=== PATIENT | male | born 1955 | race Caucasian/White ===

== ENCOUNTER 2020-06-16 07:14 | Inpatient (IN) | payer OTHER ==
[~2020-06-16] VITALS: Ht 165.1 cm; Wt 53.0 kg
[2020-06-16 07:54] LABS: BASO # 0.1 10^3/uL (0.0-0.2); BASO % 0.4 % (0.0-1.0); EOS # 0.1 10^3/uL (0.0-0.5); EOS % 0.7 % (0.0-3.0); HEMATOCRIT 45.4 % (42.0-52.0); HEMOGLOBIN 15.5 g/dl (13.5-17.5); LYMPH # 2.1 10^3/uL (1.5-5.0); MEAN CORPUSCULAR HEMOGLOBIN 30.5 pg (27.0-33.0); MEAN CORPUSCULAR HGB CONC 34.1 g/dl (32.0-36.5); MEAN CORPUSCULAR VOLUME 89.4 fl (80.0-96.0); MONO # 1.3 10^3/uL (0.0-0.8); NEUTROPHILS # 10.3 10^3/uL (1.5-8.5); NEUTROPHILS % 74.6 % (36.0-66.0); PLATELET COUNT, AUTOMATED 359 10^3/uL (150-450); RED BLOOD COUNT 5.08 10^6/uL (4.30-6.10); WHITE BLOOD COUNT 13.8 10^3/uL (4.0-10.0)
--- NOTE | 2020-06-16 08:05 | REP ---
INDICATION: CVA COMPARISON: 06/13/2020 TECHNIQUE: Portable AP view of the chest FINDINGS: The mediastinum and cardiac silhouette are stable and within normal limits for portable technique. The lung bauer demonstrate stable chronic changes without acute consolidation, effusion, or pneumothorax. Skeletal structures are intact. IMPRESSION: No acute cardiopulmonary process appreciated. <Electronically signed by Piyush Butler > 06/16/20 0801
[2020-06-16 08:11] LABS: MB/CK RELATIVE INDEX 2.27 (< OR =4); TROPONIN I 0.03 NG/ML (< 0.10)
[2020-06-16] MEDS ORDERED: ISOVUE-370 76% 100ML VIAL As Ordered ONE (08:19)
[2020-06-16 08:23] LABS: RSV AMPLIFICATION NEGATIVE (NEGATIVE)
--- NOTE | 2020-06-16 08:30 | REPVR ---
PROCEDURE INFORMATION: Exam: CT Head Without Contrast Exam date and time: 06/16/2020 7:50 AM Age: 64 years old Clinical indication: Walking, difficulty and weakness, extremity; Right; Additional info: CVA - nursing interventions must not delay CT TECHNIQUE: Imaging protocol: Computed tomography of the head without contrast. Radiation optimization: All CT scans at this facility use at least one of these dose optimization techniques: automated exposure control; mA and/or kV adjustment per patient size (includes targeted exams where dose is matched to clinical indication); or iterative reconstruction. Other technique: STROKE PROTOCOL was implemented. COMPARISON: CT Head without contrast 06/13/2020 7:39 PM FINDINGS: Brain: Evolving subacute left frontotemporal lobe infarct. Mild generalized parenchymal atrophy and evidence of microvascular ischemic disease involving periventricular and subcortical white matter bilaterally. Cerebral ventricles: No ventriculomegaly. Bones/joints: Unremarkable. No acute fracture. Paranasal sinuses: Visualized sinuses are unremarkable. No fluid levels. Mastoid air cells: Visualized mastoid air cells are well aerated. Soft tissues: Unremarkable. IMPRESSION: Evolving subacute left frontotemporal lobe infarct. No acute infarct. ASSESSMENT: ASPECTS (Samantha Stroke Program Early CT Score) is 10. Electronically signed by: Nikolay Robertson On 06/16/2020 08:29:52 AM
--- NOTE | 2020-06-16 08:38 | REPVR ---
PROCEDURE INFORMATION: Exam: CT Angiography Head With Contrast, Arteriography Exam date and time: 06/16/2020 7:50 AM Age: 64 years old Clinical indication: Weakness; Additional info: CVA - nursing interventions must not delay CT TECHNIQUE: Imaging protocol: Computed tomography angiography of the head with contrast. Exam focused on the arteries. 3D rendering (Not supervised by radiologist): MIP and/or 3D reconstructed images were created by the technologist. Radiation optimization: All CT scans at this facility use at least one of these dose optimization techniques: automated exposure control; mA and/or kV adjustment per patient size (includes targeted exams where dose is matched to clinical indication); or iterative reconstruction. Contrast material: ISOVUE 370; Contrast volume: 100 ml; Contrast route: INTRAVENOUS (IV); COMPARISON: CT Head without contrast 06/13/2020 7:39 PM FINDINGS: ANTERIOR CIRCULATION: Right internal carotid artery: Unremarkable. Intracranial segment is patent with no significant stenosis. No aneurysm. Right middle cerebral artery: Unremarkable. No occlusion or significant stenosis. No aneurysm. Right anterior cerebral artery: Unremarkable. No occlusion or significant stenosis. No aneurysm. Anterior communicating artery: Patent anterior communicating artery supplies left A1 and M1 segments. Left internal carotid artery: Occluded left internal carotid artery. Left middle cerebral artery: Diminished caliber of left M2 and M3 segments. Left anterior cerebral artery: Unremarkable. No occlusion or significant stenosis. No aneurysm. POSTERIOR CIRCULATION: Right vertebral artery: Unremarkable. No occlusion or significant stenosis. No aneurysm. Left vertebral artery: Dominant left vertebral artery. Basilar artery: Unremarkable. No occlusion or significant stenosis. No aneurysm. Right posterior cerebral artery: Unremarkable. No occlusion or significant stenosis. No aneurysm. Left posterior cerebral artery: Unremarkable. No occlusion or significant stenosis. No aneurysm. Brain: No definite mass, mass effect, or midline shift. Cerebral ventricles: No ventriculomegaly. Bones/joints: Unremarkable. No acute fracture. Soft tissues: Unremarkable. IMPRESSION: Occluded left internal carotid artery. Patent anterior communicating artery supplies left A1 and M1 segments. Diminished caliber of left M2 and M3 segments. Electronically signed by: Nikolay Robertson On 06/16/2020 08:38:30 AM
--- NOTE | 2020-06-16 08:41 | REPVR ---
PROCEDURE INFORMATION: Exam: CT Angiography Neck With Contrast Exam date and time: 06/16/2020 7:50 AM Age: 64 years old Clinical indication: Weakness; Additional info: CVA - nursing interventions must not delay CT TECHNIQUE: Imaging protocol: Computed tomography angiography of the neck with contrast. 3D rendering (Not supervised by radiologist): MIP and/or 3D reconstructed images were created by the technologist. Radiation optimization: All CT scans at this facility use at least one of these dose optimization techniques: automated exposure control; mA and/or kV adjustment per patient size (includes targeted exams where dose is matched to clinical indication); or iterative reconstruction. Contrast material: ISOVUE 370; Contrast volume: 100 ml; Contrast route: INTRAVENOUS (IV); COMPARISON: No relevant prior studies available. FINDINGS: Right common carotid artery: No stenosis. No dissection or occlusion. Right internal carotid artery: No stenosis of the extracranial segment. No dissection or occlusion. Right external carotid artery: No occlusion or stenosis of the origin. Right vertebral artery: No stenosis. No dissection or occlusion. Left common carotid artery: No stenosis. No dissection or occlusion. Left internal carotid artery: Occluded left internal carotid artery. Left external carotid artery: Proximal stenosis. Left vertebral artery: Dominant left vertebral artery. Bones/joints: Multilevel degenerative disease and facet hypertrophy of the cervical spine. Marked stenosis of the spinal canal and neural foramina at several levels most pronounced at C5-C6. Soft tissues: Normal. No significant soft tissue swelling. Lungs: Centrilobular and paraseptal emphysema. Biapical scarring. IMPRESSION: Occluded left internal carotid artery. REFERENCES: NASCET CRITERIA. The degree of internal carotid artery stenosis is based on NASCET criteria. Normal is no stenosis. Mild is less than 50% stenosis. Moderate is 50-69% stenosis. Severe is 70% to 99% stenosis. Total occlusion is no detectable patent lumen. Electronically signed by: Nikolay Robertson On 06/16/2020 08:41:05 AM
[2020-06-16] MEDS ORDERED: BAYE325T16 PO (08:47)
[2020-06-16] MEDS ORDERED: ACETAMINOPHEN TAB 650MG DOSE (2X325MG) PO PRN (11:10)
[2020-06-16] MEDS ORDERED: MOM 30ML SUSPENSION UDC PO PRN (11:10)
[2020-06-16] MEDS ORDERED: MAALOX 30 ML SUSP *UDC PO PRN (11:10)
[2020-06-16 11:43] LABS: CHOLESTEROL RISK RATIO 4.02 (<5); THYROID STIMULATING HORMONE 2.88 uIU/ML (0.358-3.740)
[2020-06-16 12:31] LABS: HEMOGLOBIN A1c 5.6 %
--- NOTE | 2020-06-16 13:21 | ECGEPIP ---
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1955 Requested By: Cornell Dao Order Number: [id number] Reading MD: Cornell Dao Measurements Intervals Paola Rate: 66 P: 77 ND: 154 QRS: 10 QRSD: 104 T: -65 QT: 422 QTc: 442 Interpretive Statements Normal sinus rhythm Left ventricular hypertrophy with repolarization abnormality ( Sokolow-Echols , Avi product , Romhilt-Snow ) p pulmonale Nonspecific ST T wave changes Delayed R wave progression cw 06/13/[address] T wave changes significant artifact and baseline wandering on 06/13/20 - diffult to compare with Electronically Signed on 06-16-2020 13:20:45 EDT by Cornell Dao
[2020-06-16 13:31] VITALS: BP 165/76
[2020-06-16] MEDS: ATORVASTATIN 20 MG TAB PO SCH (14:02)
[2020-06-16] MEDS: ENOXAPARIN 40MG/0.4ML SYRINGE (J1650 PER 10MG) SC SCH (14:02)
[2020-06-16] MEDS: ASPIRIN 81 MG CHEW TABLET PO SCH (14:03)
[2020-06-16] MEDS: CLOPIDOGREL 75 MG TAB PO SCH (14:03)
[2020-06-16] MEDS: NS 1,000 ML IV SCH ×2 (14:15→20:30)
[2020-06-16 15:05] VITALS: BP 158/82
--- NOTE | 2020-06-16 15:10 | HPEPDOC ---
General Date of Admission June 16, 2020 at 09:36 Date of Service: June 16, 2020 Attending Physician: EFREN HOU MD Chief Complaint Presenting compliant: 64-year-old male admitted with a reason for visit of Cva Cerebral Vascular Accident. History of present illness: 64-year-old male patient who has never seen a doctor in 20 years [so no past medical history] presenting to the emergency department today morning with CVA. Patient came presented to ED on 06/13/2020 with complaining of drooling and slurred speech who was further evaluated in the ED with CT head and was diagnosed with TIA, but patient left AMA on that day. He was brought back by the EMS today after sustaining a fall at home today morning. Patient's is with him today during the encounter. Patient reports he only remembers waking up and having a fall and does not remember any details about the fall or following the fall. His was present in the room reports that today morning patient did wake up and he did fix the wooden stove outside later on had a fall witnessed by her daughter. I did contact the daughter to get more information regarding the fall and she reports that he was fixing wooden stove, lost his balance and fell towards his right side, he did attempt to get up but couldn't. She reports he did not have any head injury, no seizure-like activity, no loss of consciousness, no bowel or bladder incontinence. She reports he was confused during and after the episode and did have slurring speech since Thursday. Since Thursday patient was having difficulty in eating, drinking, slurred speech, sleeping a lot, shuffling gait. Past medical history: Patient never saw a doctor in 20 years. No known past medical history. Social history: Patient has a 50 year history of smoking of one and a half pack a day. Quit in October 2019. Family History: Father has a history of hypertension, heart disease Mother has a history of mini strokes, prediabetic, has a pacemaker. Maternal Grandmother: Has history of 3-4 strokes. Patient has 3 brothers with a history of hypertension and high cholesterol levels. REVIEW OF SYSTEMS: Constitutional: Denies having fever, chills, night sweats, weight loss, headaches. Eyes: Denies any blurry vision or double vision. ENT: Reports having difficulty in eating or drinking since Thursday Cardiovascular: Denies any chest pain or palpitations. Respiratory: Denies shortness of breath and cough. Gastrointestinal (GI): Denies any nausea or vomiting. Genitourinary: Denies dysuria, hematuria. Musculoskeletal: Denies any muscle aches and pains. Skin: Denies any rashes or ulcers. Hematology/Oncology: Denies any easy bleeding or bruising. All other review of systems is negative. PHYSICAL EXAMINATION: Vital Signs: On presentation Temperature: 98.2 Fahrenheit Pulse: 66/min RR: 22/min BP: 1 67 /80 mmHg Oxygen saturation %: 95% on room air General: Patient is awake, alert, oriented times three, laying in bed, does not appear to be in apparent distress. Eyes: Conjunctiva clear, pupils equal round and reactive to light and accommod ation. Patient couldn't follow the commands of following the fingers with his eyes. Couldn't assess extraocular movements. Fundus: not visualized. ENT: Hearing Bilateral normal. No nasal deviation, oropharynx clear with no lesions/erythema. On opening his mouth and sticking out that tongue, patient has mild deviation of the tongue towards the right. Neck: supple, no masses, trachea midline, no thyroid nodules appreciated on palpation, no tenderness or enlargement. Cardiovascular: S1, S2, normal rate and rhythm, systolic murmur 2/5, no rub appreciated; no JVD, noted displacement of PMI, no carotid or abdominal bruits. Pulses: Carotid and pedal pulses 3+ symmetric, no edema. Respiratory: Chest is clear to auscultation bilaterally, normal respiratory effort with no use of accessory muscles, diaphragm moves well with respiration. No rhonchi, wheezes or rubs. Abdomen: Soft, bowel sounds positive, no bruits. Nontender on palpation. Liver edge, spleen not felt, no masses. Extremities: Noted clubbing and upper extremities and lower extremities, noted onychomycosis and lower extremity nails. No edema, no cyanosis, no tenderness. Spine: No kyphosis, no paraspinal tenderness, no costovertebral tenderness. 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 Cranial nerves: ll: Pupils equal and reactive, no visual deficits, fundus not examined. lll, lV, Vl: Extraocular movements couldn't assess as patient was not following commands, no gaze deviation, no nystagmus noted. V: Normal sensations in V1, V2, V3 segment bilaterally. Vll: Noted right-sided loss of nasolabial Fold, flattening. Deviation of angle of mouth to left. Vlll: Normal hearing to speech. lX,X: Did not note any palatal elevation, could not visualize uvula deviation. Xl: 5/5 head turned to the left, 3/5 head turned to the right. Decreased strength on shrugging of right shoulder normal strength on left. Xll: Tongue deviation to the right. Motor: - 5 /5 strength muscle in the left shoulder abductors/adductors, elbow flexors/extension, hip flexor/extensor, knee flexor/extension, ankle dorsif lexion and plantar flexion. - 3/5 muscle strength in right shoulder abductor/adductors, elbow flexio n/extension. - 4/5 motor strength in right ankle dorsiflexion and plantar flexion. - Mild pronator drift noted in the right upper extremity. Reflexes: 2+ reflexes in upper and lower extremity, no clonus appreciated. Sensory: Normal to touch, pinprick in all limbs. Gait: Not assessed. Skin: No rashes, lesions, ulcerations, subcutaneous nodules or induration. Pertinent Diagnostic tests: Neck CTA done on 06/16/2020: Reported as: Occluded left internal carotid artery, proximal stenosis of the left external carotid, no stenosis or dissection or occlusion in the left common carotid artery. No stenosis dissection or occlusion of the right common carotid, right inguinal carotid, right external carotid, right leg tubular artery. Head CT done on 06/16/2020: Reported as: Evolving subacute left frontal temporal lobe infarct. No acute infarct. CTA head done on 06/16/2020: Reported as: Occluded left internal carotid artery. Patent anterior communicating artery supplies left A1 and M1 segments. Dimini shed caliber of the left M2 and M3 segments. Chest x-ray done on 06/16/2020: Reported as: No acute cardiopulmonary processes appreciated. LABS: WBC 13.8, hemoglobin 15.5, head CT 45.4, platelets 359. BMP: Sodium 137, K3.9, BUN 21, creatinine 0.6. PT 12.4, INR 1, APTT 28.3. Assessment: 64-year-old male with no known medical comorbidities presented to the ED on 06/13/2020 with a TIA, who left AMA. Today patient was brought in by EMS as patient had a fall on further evaluation in the ED imaging showed fronto temporal infarct. Dr. Galeana neurology was consulted from ED and he recommended contacting [facility] regarding this patient and they recommended starting him on aspirin & Plavix as he wouldn't be a candidate for TPA [given his duration of presentation] and managing the patient at [facility]. Patient is being admitted on the medical team for further management and evaluation. Plan: Cerebrovascular accident: - Patient had a TIA on 06/13/2020, as per the family he was never back to baseline following the episode [had slurring speech] - Today patient is presenting with an evolving ischemic/embolic infarct. - Will get an MRI brain to get more information on the infarct. - Neurology consult in place [Dr. Galeana has been contacted and informed about the case] we highly appreciated their input and recommendations. - If embolic the likely cause for the embolic is his left carotid artery given the complete occlusion on the CTA. - Will start patient on aspirin full dose 325 mg daily. - We will start patient on Plavix 75 mg by mouth daily. - Will start patient on Lipitor 80 mg daily. - Will get a lipid panel, hemoglobin A1c, TSH[orders in place] - Fall precautions, aspiration precautions. - Will get a swallow evaluated while prior to starting him on any diet. - As of now we will keep patient on bedrest. - Will start patient on 0.9% NaCl at the rate of 100 mL/h. - Will put patient on telemetry, will get an echocardiogram to rule out any cardiac issues like atrial fibrillation leading to this stroke. - To keep a close watch on patient as he may develop edema surrounding the infarct/ hemorrhage as it is an evolving infarct. DVT prophylaxis: - Lovenox 40 MG daily. Disposition: Pending clinical improvement. Home Medications Scheduled Aspirin (Aspirin) 325 Mg Tablet, 325 MG PO DAILY, (Reported) Allergies Coded Allergies: No Known Allergies (Unverified , 06/13/20) A-FIB/CHADSVASC A-FIB History Current/History of A-Fib/PAF?: No Current PO Anticoag Therapy: No Vital Signs Vital Signs Date Time Temp Pulse Resp B/P (MAP) Pulse Ox O2 Delivery O2 Flow Rate FiO2 5/1/21 10:30 68 18 196/83 (120) 97 Room Air 06/16/20 07:26 98.2 Laboratory Data Labs 24H Laboratory Tests 2 06/16/20 07:27: Bedside Glucose (Misc Panel) 133H 06/16/20 07:35: Immature Granulocyte % (Auto) 0.3, Neutrophils (%) (Auto) 74.6H, Lymphocytes (%) (Auto) 15.0L, Monocytes (%) (Auto) 9.0H, Eosinophils (%) (Auto) 0.7, Basophils (%) (Auto) 0.4, Neutrophils # (Auto) 10.3H, Lymphocytes # (Auto) 2.1, Monocytes # (Auto) 1.3H, Eosinophils # (Auto) 0.1, Basophils # (Auto) 0.1, Nucleated Red Blood Cells % (auto) 0.0, Activated Partial Thromboplast Time 28.3, POC Prothrombin Time (Misc) 12.4, POC INR (Misc) 1.0, Total Creatine Kinase 132, Creatine Kinase MB 3.0, Creatine Kinase MB Relative Index 2.27, Troponin I 0.03, Triglycerides Level 88, Total Cholesterol 201H, LDL Cholesterol 133H, Non-HDL Cholesterol (LDL + VLDL) 151, Total HDL Cholesterol 50, Cholesterol/HDL Ratio 4.020, Thyroid Stimulating Hormone (TSH) 2.880, Coronavirus (COVID-19)(PCR) NEGATIVE, Influenza Type A (RT-PCR) NEGATIVE, Influenza Type B (RT-PCR) NEGATIVE, Respiratory Syncytial Virus (PCR) NEGATIVE 06/16/20 07:37: POC Glucose (Misc Panel) 125H, POC Sodium (Misc Panel) 137, POC Potassium (Misc Panel) 3.9, POC Chloride (Misc Panel) 102, POC Total CO2 (Misc Panel) 26.0, POC Blood Urea Nitrogen (Misc Panel 21, POC Ionized Calcium (Misc Panel) 5.0, POC Creatinine (Misc Panel) 0.6, POC Hematocrit (Misc Panel) 46.0 CBC/BMP Laboratory Tests 06/16/20 07:35 Plan / VTE VTE Prophylaxis Ordered?: Yes GME ATTESTATION GME ATTESTATION My faculty preceptor for this patient encounter was physically present during the encounter and was fully available. All aspects of the patient interview, examination, medical decision making process, and medical care plan development were reviewed and approved by the faculty preceptor. The faculty preceptor is aware and concurs with the plan as stated in the body of this note and will attest to such by his/her cosignature. ATTENDING NOTE 64 yo chronic smoker, marrero who does not see medical providers at baseline and has generally been healthy until 06/11 when he developed acute dysarthria and R sided weakness and was brought to the ED with c/f TIA vs. CVA and had a head CT that was negative at the time and before he could complete a stroke evaluation and be admitted, he declined admission and signed out AMA because he has work to do at the [employer], who now returns reporting worsening evolving neurological symptoms with R sided weakness and a fall this morning and does not really remember what happened now with CT head showing a subacute left frontotemporal lobe infarct and CTA neck showing an occluded L internal carotid artery and neurology was consulted by the ED and [facility] neurology telemedicine consult made that recommended no tPA and no acute invasive interventions and recommended [facility] [place] for medical management with ASA, plavix and high intensity statin with a full stroke workup. We are therefore ordering an MRI brain, TTE with bubble study, lipid panel, a1c, telemetry, TFTs and will order PT/OT evaluation. Corrine Malik MD June 16, 2020 15:10 EFREN HOU MD June 16, 2020 15:37
--- NOTE | 2020-06-16 17:18 | CR ---
CONSULTATION DATE: 06/16/2020 REFERRING PHYSICIAN: Zina Holland M.D. REASON FOR CONSULTATION: Right-sided weakness. HISTORY OF PRESENT ILLNESS: Ghulam Nicole is a 64-year-old man who has never seen a doctor for more than 20 years. He presented to the emergency department on June 13, 2020. He had drooling and slurred speech. He was last seen that day around 4:00 p.m. by . He went to his barn around 6:00 and had drooling and slurred speech. She brought him to [facility] around 7:[address] scan of head was unremarkable. Patient left against medical advice. The day before yesterday he developed right arm weakness. Today he felt right leg weakness and fell. He denies any headaches, neck or back pain, diplopia, urinary incontinence, loss of consciousness or head injuries. CT scan of head today showed a large left frontal subacute ischemic stroke. CT angiography of head and neck showed left internal carotid artery occlusion. [facility] was consulted, who did not recommend any further intervention for left internal carotid artery occlusion. PAST MEDICAL HISTORY: Patient has not seen a physician in 20 years. SOCIAL HISTORY: Patient has 50 pack year smoking history for 1-1/2 packs per day. He quit in October 2019. FAMILY HISTORY: Father with history of hypertension and heart disease. Mother with history of stroke, diabetes and pacemaker replacement. Maternal grandmother had strokes. REVIEW OF SYSTEMS: All systems were reviewed and found to be noncontributory except as mentioned in history of present illness. DIAGNOSTIC STUDIES: CT head and CTA head and neck showed occluded left internal carotid artery. Diminished flow in M2 and M3 segments. WBC 13.8, hemoglobin 15.5. Creatinine 0.6 with normal coags. Sodium 137. PHYSICAL EXAMINATION: Temperature 98.2, pulse 66, respiratory rate 22, blood pressure 167/80. HEART: Regular rate and rhythm. LUNGS: Clear to auscultation. ABDOMEN: Soft, nontender, nondistended. EXTREMITIES: No pedal edema. MUSCULOSKELETAL: No abnormalities. SKIN: No rash. NEUROLOGICAL: No signs of meningeal irritation. The patient is awake, alert, oriented to place, person and time. Normal speech, comprehension and repetition. Extraocular muscles are intact. He has right-sided upper motor neuron type facial weakness affecting the right lower face. Tongue and uvula are midline. Right arm and leg strength is 4-/5. Right plantar is upgoing. Gait was not tested. ASSESSMENT: 1. Subacute left frontal ischemic stroke. 2. Left internal carotid artery occlusion. PLAN: 1. Echocardiogram and telemetry monitoring. 2. Fasting lipid profile. 3. Aspirin 81 mg by mouth daily and Plavix 75 mg by mouth daily. 4. Atorvastatin 80 mg by mouth daily and his dose can be lowered based on his fasting lipid profile. 5. Physical and occupational therapy and rehabilitation.
[2020-06-16 19:46] VITALS: BP 159/79
[2020-06-16] MEDS: DOCUSATE SODIUM 100MG CAPSULE PO SCH (20:30)
[2020-06-16 23:44] VITALS: BP 139/86
--- NOTE | 2020-06-17 00:19 | REPVR ---
PROCEDURE INFORMATION: Exam: MR Head Without Contrast Exam date and time: 06/16/2020 12:48 PM Age: 64 years old Clinical indication: Altered mental status/memory loss; Confusion or disorientation; Patient HX: AMS, weakness; Additional info: CVA TECHNIQUE: Imaging protocol: MR of the head without contrast. COMPARISON: CT Head without contrast 06/16/2020 7:49 AM FINDINGS: Examination is motion limited. There is partial loss of the left ICA flow void. Remaining major vascular flow voids at the skull base are preserved. No extra-axial fluid collection. No hydrocephalus. Non-specific white matter gliosis, probable chronic microvascular ischemia. There is left frontotemporal diffusion restriction measuring up to 7.6 cm. Associated T2 prolongation and edema. Local mass effect without midline shift. Minimal paranasal sinus disease. Minimal right mastoid effusion. IMPRESSION: 1. 7.6 cm early subacute ischemic infarct within the left MCA territory. 2. Partial loss of the left ICA flow void, better evaluated on recent CTA. Electronically signed by: Vinh Trammell On 06/17/2020 00:19:26 AM
[2020-06-17 03:45] VITALS: BP 144/72
[2020-06-17 06:52] LABS: BASO % 0.3 % (0.0-1.0); EOS # 0.1 10^3/uL (0.0-0.5); EOS % 1.5 % (0.0-3.0); HEMATOCRIT 41.9 % (42.0-52.0); HEMOGLOBIN 14.1 g/dl (13.5-17.5); LYMPH # 2.2 10^3/uL (1.5-5.0); LYMPH % 22.9 % (24.0-44.0); MEAN CORPUSCULAR HEMOGLOBIN 30.1 pg (27.0-33.0); MEAN CORPUSCULAR HGB CONC 33.7 g/dl (32.0-36.5); MEAN CORPUSCULAR VOLUME 89.3 fl (80.0-96.0); MONO # 0.9 10^3/uL (0.0-0.8); NEUTROPHILS # 6.1 10^3/uL (1.5-8.5); NEUTROPHILS % 65.1 % (36.0-66.0); PLATELET COUNT, AUTOMATED 333 10^3/uL (150-450); RED BLOOD COUNT 4.69 10^6/uL (4.30-6.10); WHITE BLOOD COUNT 9.4 10^3/uL (4.0-10.0)
[2020-06-17 07:15] LABS: BLOOD UREA NITROGEN 24 MG/DL (7-18); CALCIUM LEVEL 8.7 MG/DL (8.8-10.2); CARBON DIOXIDE LEVEL 26 MEQ/L (21-32); CHLORIDE LEVEL 107 MEQ/L (98-107); CREATININE FOR GFR 0.58 MG/DL (0.70-1.30); GLOMERULAR FILTRATION RATE > 60.0 (>49); GLUCOSE, FASTING 78 MG/DL (70-100); POTASSIUM SERUM 3.7 MEQ/L (3.5-5.1); SODIUM LEVEL 138 MEQ/L (136-145)
[2020-06-17 07:24] VITALS: BP 168/82
[2020-06-17] MEDS: ENOXAPARIN 40MG/0.4ML SYRINGE (J1650 PER 10MG) SC SCH (09:32)
[2020-06-17] MEDS: NS 1,000 ML IV SCH (09:33)
[2020-06-17] MEDS: DOCUSATE SODIUM 100MG CAPSULE PO SCH ×2 (09:33→21:49)
[2020-06-17] MEDS: ATORVASTATIN 20 MG TAB PO SCH (09:33)
[2020-06-17] MEDS: ASPIRIN 81 MG CHEW TABLET PO SCH (09:33)
[2020-06-17] MEDS: CLOPIDOGREL 75 MG TAB PO SCH (09:33)
[2020-06-17 11:42] VITALS: BP 167/77
--- NOTE | 2020-06-17 12:43 | IPNPDOC ---
Text Note Date of Service The patient was seen on 06/17/20. NOTE SUBJECTIVE: -No acute events OBJECTIVE: Vitals: see below General: Patient is awake, alert, oriented times three, in NAD Eyes: Conjunctiva clear, pupils equal round and reactive to light and accommodation, EOMI and following commands for exam this AM ENT: Oropharynx clear with no lesions/erythema, MMM Neck: supple, no masses, trachea midline, no tenderness or enlargement. Cardiovascular: S1, S2, normal rate and rhythm, systolic murmurs of different characteristics, generally 2/6 heard at RUSB and apex Respiratory: Chest is clear to auscultation bilaterally, normal respiratory effort with no use of accessory muscles, diaphragm moves well with respiration. No rhonchi, wheezes or rubs. Abdomen: Soft, bowel sounds positive, no bruits. Nontender on palpation. Extremities: Noted clubbing and upper extremities and lower extremities, extensive onychomycosis of lower extremity nails. No edema, no cyanosis, no tenderness. Neuro: AOx3, following commands, has slight dysarthria much improved from prior, very slight facial droop much improved from prior, 4/5 strength in RUE and RLE, 5/5 in LUE and LLE. LABS: Reviewed WBC 9.4 Hgb 14.1 platelets 333 Na 138 K 3.7 Cr 0.58 a1c 5.6 T chol 201 LDL 133 TSH 2.88 IMAGING: MRI brain, no contrast: Examination is motion limited. There is partial loss of the left ICA flow void. Remaining major vascular flow voids at the skull base are preserved. No extra-axial fluid collection. No hydrocephalus. Non-specific white matter gliosis, probable chronic microvascular ischemia. There is left frontotemporal diffusion restriction measuring up to 7.6 cm. Associated T2 prolongation and edema. Local mass effect without midline shift. Minimal paranasal sinus disease. Minimal right mastoid effusion. IMPRESSION: 1. 7.6 cm early subacute ischemic infarct within the left MCA territory. 2. Partial loss of the left ICA flow void, better evaluated on recent CTA. Neck CTA done on 06/16/2020: Reported as: Occluded left internal carotid artery, proximal stenosis of the left external carotid, no stenosis or dissection or occlusion in the left common carotid artery. No stenosis dissection or occlusion of the right common carotid, right inguinal carotid, right external carotid, right leg tubular artery. Head CT done on 06/16/2020: Reported as: Evolving subacute left frontal temporal lobe infarct. No acute infarct. CTA head done on 06/16/2020: Reported as: Occluded left internal carotid artery. Patent anterior communicating artery supplies left A1 and M1 segments. Diminished caliber of the left M2 and M3 segments. Chest x-ray done on 06/16/2020: Reported as: No acute cardiopulmonary processes appreciated. LABS: WBC 13.8, hemoglobin 15.5, head CT 45.4, platelets 359. BMP: Sodium 137, K3.9, BUN 21, creatinine 0.6. PT 12.4, INR 1, APTT 28.3. Assessment: 64-year-old M with no known medical history and no contact with the medical system who presented to the ED on 06/13/2020 and diagnosed with a TIA, who left AMA before completion of a stroke workup who returned on 06/16 with doug R sided deficits and dysarthria and diagnosed with a 7.6 cm early subacute ischemic infarct within the left MCA territory and left ICA occlusion now admitted to medicine for stroke workup and management. Plan: Cerebrovascular accident: - 7.6 cm early subacute ischemic infarct within the left MCA territory per imaging as noted above with L ICA occlusion. - Presented after a few days after onset of symptoms and infarct is subacute therefore not eligible for tPA - Neurology consulted Dr. Galeana - lipitor 80mg, ASA 81, plavix 75mg daily - TSH wnl - A1c wnl - HLD per lipid panel and lipitor was started - Fall precautions, aspiration precautions. - Will get a swallow evaluated for now ok for liquids nursing trial of apple sauce and pudding. - Activity as tolerated with PT/OT - DC IVF - telemetry - TTE with bubble - q4h neuro checks DVT prophylaxis: - Lovenox 40 MG daily. Disposition: PCU VS,Fishbone, I+O VS, Fishbone, I+O Laboratory Tests 06/17/20 05:38 Vital Signs Date Time Temp Pulse Resp B/P (MAP) Pulse Ox O2 Delivery O2 Flow Rate FiO2 06/17/20 11:42 98.0 67 18 167/77 (107) 97 Room Air I&O- Last 24 Hours up to 6 AM 06/17/20 06:00 Intake Total 1780 ml Output Total 300 ml Balance 1480 ml EFREN HOU MD June 17, 2020 12:43
[2020-06-17 15:38] VITALS: BP 156/76
[2020-06-17 21:50] VITALS: BP_SYST 165; BP_SYST 183; BP_DIAS 81; BP_DIAS 88
[2020-06-18 00:37] VITALS: BP 160/80
[2020-06-18 04:45] VITALS: BP 174/84
[2020-06-18 06:16] LABS: BASO # 0.1 10^3/uL (0.0-0.2); BASO % 0.6 % (0.0-1.0); EOS # 0.2 10^3/uL (0.0-0.5); EOS % 2.2 % (0.0-3.0); HEMATOCRIT 41.1 % (42.0-52.0); HEMOGLOBIN 14.2 g/dl (13.5-17.5); LYMPH # 1.9 10^3/uL (1.5-5.0); LYMPH % 21.5 % (24.0-44.0); MEAN CORPUSCULAR HEMOGLOBIN 30.5 pg (27.0-33.0); MEAN CORPUSCULAR HGB CONC 34.5 g/dl (32.0-36.5); MEAN CORPUSCULAR VOLUME 88.4 fl (80.0-96.0); MONO # 0.9 10^3/uL (0.0-0.8); MONO % 10.7 % (2.0-8.0); NEUTROPHILS # 5.7 10^3/uL (1.5-8.5); NEUTROPHILS % 64.5 % (36.0-66.0); PLATELET COUNT, AUTOMATED 320 10^3/uL (150-450); RED BLOOD COUNT 4.65 10^6/uL (4.30-6.10); WHITE BLOOD COUNT 8.8 10^3/uL (4.0-10.0)
[2020-06-18 06:40] LABS: BLOOD UREA NITROGEN 21 MG/DL (7-18); CALCIUM LEVEL 9.3 MG/DL (8.8-10.2); CARBON DIOXIDE LEVEL 27 MEQ/L (21-32); CHLORIDE LEVEL 103 MEQ/L (98-107); CREATININE FOR GFR 0.51 MG/DL (0.70-1.30); GLOMERULAR FILTRATION RATE > 60.0 (>49); GLUCOSE, FASTING 89 MG/DL (70-100); SODIUM LEVEL 137 MEQ/L (136-145)
[2020-06-18 08:00] VITALS: BP 154/77
[2020-06-18] MEDS: ENOXAPARIN 40MG/0.4ML SYRINGE (J1650 PER 10MG) SC SCH (08:15)
[2020-06-18] MEDS: ATORVASTATIN 20 MG TAB PO SCH (08:16)
[2020-06-18] MEDS: DOCUSATE SODIUM 100MG CAPSULE PO SCH (08:16)
[2020-06-18] MEDS: CLOPIDOGREL 75 MG TAB PO SCH (08:16)
[2020-06-18] MEDS ORDERED: ASPIRIN 81 MG CHEW TABLET PO SCH (09:00)
[2020-06-18] MEDS ORDERED: lisinopriL 5 MG TAB PO SCH (09:00)
--- NOTE | 2020-06-18 10:40 | DS.PDOC ---
Discharge Summary General Date of Admission June 16, 2020 at 09:36 Date of Discharge 06/18/2020 Attending Physician: EFREN HOU MD Discharge Summary PROCEDURES PERFORMED DURING STAY: None ADMITTING DIAGNOSES: CVA DISCHARGE DIAGNOSES: Subacute L MCA CVA Newly diagnosed HTN Newly diagnosed HLD L internal carotid atherosclerotic disease COMPLICATIONS/CHIEF COMPLAINT: Cva Cerebral Vascular Accident. 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 CVA and had a head CT that was negative at the time and before he could complete a stroke evaluation and be admitted, he declined admission and signed out AMA because he had work to do at the [employer], who now returned reporting worsening evolving neurological symptoms with R sided weakness and a fall this morning and did not really remember what happened. HOSPITAL COURSE: On this presentation, he was hypertensive and CT head showed a subacute left frontotemporal lobe infarct and CTA neck showing an occluded L internal carotid artery and neurology was consulted by the ED and [facility] neurology telemedicine consult made that recommended no tPA and no acute invasive interventions and recommended [facility] admission for medical management with ASA, plavix and high intensity statin with a full stroke workup. MRI brain without contrast revealed a 7.6 cm early subacute ischemic infarct within the left MCA territory and parti al loss of the left ICA flow void. Labs eventually revealed hyperlipidemia, no DM, and otherwise normal kidney and thyroid function and electrolytes and no evidence of infection. He has a pending TTE. He was noted to have some coughing with PO and had a swallow evaluation and deemed safe for a pureed diet at this time with thin liquids and PT/OT deemed him safe for home discharge. He is now being discharged home with a new PCP set up perhaps at the resident clinic and neurology clinic follow up. DISCHARGE MEDICATIONS: Please see below. ALLERGIES: Please see below. PHYSICAL EXAMINATION ON DISCHARGE: VITAL SIGNS: Please see below. General: Patient is awake, alert, oriented times three, in NAD Eyes: Conjunctiva clear, pupils equal round and reactive to light and accommodation, EOMI and following commands for exam this AM ENT: Oropharynx clear with no lesions/erythema, MMM Neck: supple, no masses, trachea midline, no tenderness or enlargement. Cardiovascular: S1, S2, normal rate and rhythm, systolic murmurs of different characteristics, generally 2/6 heard at RUSB and apex Respiratory: Chest is clear to auscultation bilaterally, normal respiratory effort with no use of accessory muscles, diaphragm moves well with respiration. No rhonchi, wheezes or rubs. Abdomen: Soft, bowel sounds positive, no bruits. Nontender on palpation. Extremities: Noted clubbing and upper extremities and lower extremities, extensive onychomycosis of lower extremity nails. No edema, no cyanosis, no tenderness. Neuro: AOx3, following commands, has slight dysarthria, very slight facial droop much improved from prior, 4.5/5 strength in RUE and RLE, 5/5 in LUE and LLE. LABORATORY DATA: Please see below. IMAGING: MRI brain, no contrast: Examination is motion limited. There is partial loss of the left ICA flow void. Remaining major vascular flow voids at the skull base are preserved. No extra-axial fluid collection. No hydrocephalus. Non-specific white matter gliosis, probable chronic microvascular ischemia. There is left frontotemporal diffusion restriction measuring up to 7.6 cm. Associated T2 prolongation and edema. Local mass effect without midline shift. Minimal paranasal sinus disease. Minimal right mastoid effusion. IMPRESSION: 1. 7.6 cm early subacute ischemic infarct within the left MCA territory. 2. Partial loss of the left ICA flow void, better evaluated on recent CTA. Neck CTA done on 06/16/2020: Reported as: Occluded left internal carotid artery, proximal stenosis of the left external carotid, no stenosis or dissection or occlusion in the left common carotid artery. No stenosis dissection or occlusion of the right common carotid, right inguinal carotid, right external carotid, right leg tubular artery. Head CT done on 06/16/2020: Reported as: Evolving subacute left frontal temporal lobe infarct. No acute infarct. CTA head done on 06/16/2020: Reported as: Occluded left internal carotid artery. Patent anterior communicating artery supplies left A1 and M1 segments. Diminished caliber of the left M2 and M3 segments. Chest x-ray done on 06/16/2020: Reported as: No acute cardiopulmonary processes appreciated. PROGNOSIS: Good ACTIVITY: As tolerated DIET: 2g sodium DISCHARGE PLAN: Home with ASA, plavix, lipitor, lisinopril DISPOSITION: Home DISCHARGE INSTRUCTIONS: Please take medications as prescribed and go to your neurology appointment and y our new PCP appointment ITEMS TO FOLLOWUP ON ON OUTPATIENT: HTN HLD Recent CVA DISCHARGE CONDITION: Stable TIME SPENT ON DISCHARGE: 46 minutes. Vital Signs/I&Os Vital Signs Date Time Temp Pulse Resp B/P (MAP) Pulse Ox O2 Delivery O2 Flow Rate FiO2 06/18/20 08:00 97.4 61 14 154/77 (102) 94 Room Air I&O- Last 24 Hours up to 6 AM 06/18/20 06:00 Intake Total 720 ml Output Total 800 ml Balance -80 ml Laboratory Data Labs 24H Laboratory Tests 2 06/17/20 12:35: Bedside Glucose (Misc Panel) 83 06/18/20 05:47: Immature Granulocyte % (Auto) 0.5, Neutrophils (%) (Auto) 64.5, Lymphocytes (%) (Auto) 21.5L, Monocytes (%) (Auto) 10.7H, Eosinophils (%) (Auto) 2.2, Basophils (%) (Auto) 0.6, Neutrophils # (Auto) 5.7, Lymphocytes # (Auto) 1.9, Monocytes # (Auto) 0.9H, Eosinophils # (Auto) 0.2, Basophils # (Auto) 0.1, Nucleated Red Blood Cells % (auto) 0.0, Anion Gap 7L, Glomerular Filtration Rate > 60.0, Calcium Level 9.3 CBC/BMP Laboratory Tests 06/18/20 05:47 FSBS Laboratory Tests Test 06/17/20 12:35 Range/Units Bedside Glucose (Misc Panel) 83 80-115 MG/DL Discharge Medications Scheduled Aspirin (Aspirin) 325 Mg Tablet, 325 MG PO DAILY, (Reported) Allergies Coded Allergies: No Known Allergies (Unverified , 06/13/20) EFREN HOU MD June 18, 2020 10:39
[2020-06-18] MEDS ORDERED: ASPI81CH8 PO (10:42)
[2020-06-18] MEDS ORDERED: CLOP75TA2 PO (10:42)
[2020-06-18] MEDS ORDERED: LISI-898 PO (10:42)
[2020-06-18] MEDS ORDERED: ATOR80TA59 PO (10:42)
[2020-06-18 11:56] VITALS: BP 150/74
[2020-06-18 12:00] VITALS: BP 150/74
--- NOTE | 2020-06-18 13:17 | ECHO ---
DATE OF PROCEDURE: 06/17/2020 Age: 64 Gender: Male Height: 66 inches Weight: 135 pounds Body Surface Area: 1.69 m2 PATIENT LOCATION: Inpatient PCU Room 3228. REFERRING PHYSICIAN: Mark Malik. INDICATION: CVA - ? cardiac source of embolic material. MEASUREMENTS: 2D Measurements: RV 2.8 cm LV 5.2 cm Septum 1.2 cm Posterior wall 1.2 cm Aortic Root 3.2 cm LA 4.0 cm LVEF 55% Doppler Measurements: AV - 2.12 m/s LVOT 0.89 m/s LVOT diameter 2.3 cm MV-E 46, A 78, EA ratio 0.6 Early mitral deceleration time 203 msec E prime medial 6, A prime medial 11, E prime lateral 6.4 Average E/E prime ratio 7.4/PCWP 11 mmHg PV 1.0 m/s Pulmonary artery acceleration time 130 msec RVSP 24 mmHg IVC 1.3 cm COMMENTS: Normal sinus rhythm without intraventricular conduction disturbance. A somewhat technically challenging study, but diagnostically useful information was still obtained. M-mode and 2-dimensional echocardiography was performed with pulse, continuous wave, color flow, and tissue Doppler studies. Borderline concentric left ventricular hypertrophy with normal wall motion. Mildly dilated left atrium with grade 1 LV diastolic dysfunction but currently normal estimated mean left atrial pressure. Normal right heart chamber sizes and motion and estimated pulmonary arterial pressure. IVC size was somewhat reduced with complete collapse suggestive of a somewhat soft central venous pressure. Normal aortic root size but could not visualize the ascending aorta or aortic arch to rule out coarctation of the aorta. Difficult to visualize the number of aortic valve cusps but suspected bicuspid valve with echogenic raphe where ordinarily the commissure between the right and left coronary cusps would be visualized. Adequate cusp motion of the noncoronary cusps. The mean transvalvular systolic gradient was only 9 mmHg with dimensionless index of 0.46 in keeping with no more than a marginal degree of aortic stenosis with this suspected bicuspid aortic valve. No insufficiency. Mild mitral annular thickening but normal leaflet excursion and no posterior systolic buckling with only very mild insufficiency. Normal appearing tricuspid valve with very mild insufficiency (physiologic). No separate intracardiac mass or pericardial effusion could be visualized. If a cardiac source of embolic material is seriously suspect would recommend a transesophageal echocardiogram to further define aortic valvular structure and function. MTDD
[2020-06-20 17:09] LABS: Lyme Disease IgG Ab 18 kDa Ban Absent (.); Lyme Disease IgG Ab 23 kDa Ban Absent (.); Lyme Disease IgG Ab 28 kDa Ban Absent (.); Lyme Disease IgG Ab 30 kDa Ban Absent (.); Lyme Disease IgG Ab 39 kDa Ban Present (.); Lyme Disease IgG Ab 41 kDa Ban Present (.); Lyme Disease IgG Ab 45 kDa Ban Present (.); Lyme Disease IgG Ab 58 kDa Ban Absent (.); Lyme Disease IgG Ab 66 kDa Ban Absent (.); Lyme Disease IgG Ab 93 kDa Ban Absent (.); Lyme Disease IgG West Blot Int Negative (.); Lyme Disease IgG/IgM Antibodie <0.91 ISR (0.00-0.90); Lyme Disease IgM Ab 23 kDa Ban Absent (.); Lyme Disease IgM Ab 39 kDa Ban Absent (.); Lyme Disease IgM Ab 41 kDa Ban Present (.); Lyme Disease IgM Ab Quantitati 1.23 index (0.00-0.79); Lyme Disease IgM West Blot Int Negative (.)
== END 2020-06-18 14:51 | disposition home health service (06) | DRG 45 ==
LOC: M ED 07:14 → EDBD 07:14 → M ED INP 09:36 → M PCU 13:18
PROVIDERS: ADMIT Internal Medicine; ATTEND Internal Medicine
DX: I63.132 Cerebral infarction due to embolism of left carotid artery (principal); I69.351 Hemiplegia and hemiparesis following cerebral infarction affecting right dominant side; I10 Essential (primary) hypertension; Z79.82 Long term (current) use of aspirin; F17.200 Nicotine dependence, unspecified, uncomplicated

== ENCOUNTER → 2020-06-22 | Outpatient (REF) | payer OTHER ==
[~2020-06-22] MED LIST: ASPI81CH8 PO; ATOR80TA59 PO; BAYE325T16 PO; CLOP75TA2 PO; LISI-898 PO
[2020-06-22 16:10] LABS: BLOOD UREA NITROGEN 34 MG/DL (7-18); CARBON DIOXIDE LEVEL 30 MEQ/L (21-32); CHLORIDE LEVEL 102 MEQ/L (98-107); CREATININE FOR GFR 0.68 MG/DL (0.70-1.30); GLOMERULAR FILTRATION RATE > 60.0 (>49); GLUCOSE, FASTING 96 MG/DL (70-100); POTASSIUM SERUM 4.8 MEQ/L (3.5-5.1); SODIUM LEVEL 138 MEQ/L (136-145)
== END ==
LOC: M SFHCPLAZ 10:58
PROVIDERS: ATTEND Family Medicine
DX: I10 Essential (primary) hypertension (principal)

== ENCOUNTER → 2020-07-11 | Outpatient (CLI) | payer OTHER ==
--- NOTE | 2020-07-11 08:37 | REP ---
INDICATION: ENCOUNTER FOR SCREENING FOR LUNG CANCER COMPARISON: None. TECHNIQUE: Axial noncontrast images from the thoracic inlet to the upper abdomen using low-dose lung screening technique (LDCT). FINDINGS: Moderate emphysematous changes are appreciated along with mild presumed chronic somewhat nodular biapical scarring. No obvious acute consolidation, suspicious nodule or mass. Few small punctate 1-2 mm densities are identified. No effusion. No pneumothorax. Tracheobronchial tree is patent. IMPRESSION: Lung-RADS 1 S. Findings suggesting COPD/emphysematous disease with minimal scattered primarily biapical scarring. No definite suspicious nodule or mass lesion. Management recommendations include annual low-dose CT surveillance. <Electronically signed by Piyush Butler > 07/11/20 [id number]
== END ==
LOC: M RAD 08:02
PROVIDERS: ATTEND Family Medicine
DX: Z12.2 Encounter for screening for malignant neoplasm of respiratory organs (principal); J43.9 Emphysema, unspecified; R91.8 Other nonspecific abnormal finding of lung field; Z87.891 Personal history of nicotine dependence

== ENCOUNTER → 2020-09-11 | Outpatient (REF) | payer OTHER ==
[2020-09-11 13:19] LABS: BLOOD UREA NITROGEN 12 MG/DL (7-18); CARBON DIOXIDE LEVEL 32 MEQ/L (21-32); CHLORIDE LEVEL 104 MEQ/L (98-107); CHOLESTEROL LEVEL 121 MG/DL (<200); CHOLESTEROL RISK RATIO 2.813 (<5); CREATININE FOR GFR 0.67 MG/DL (0.70-1.30); GLOMERULAR FILTRATION RATE > 60.0 (>49); GLUCOSE, FASTING 92 MG/DL (70-100); HDL CHOLESTEROL 43 MG/DL (>40); LDL CHOLESTEROL 59 MG/DL (<100); NON-HDL-C 78 MG/DL; PHOSPHORUS LEVEL 3.1 MG/DL (2.5-4.9); POTASSIUM SERUM 4.2 MEQ/L (3.5-5.1); SODIUM LEVEL 140 MEQ/L (136-145); TRIGLYCERIDES LEVEL 93 MG/DL (<150)
== END ==
LOC: M LABDRWAD 12:26
PROVIDERS: ATTEND Internal Medicine Cardiovascular Disease
DX: E78.5 Hyperlipidemia, unspecified (principal); I10 Essential (primary) hypertension

== ENCOUNTER → 2020-09-17 | Outpatient (REF) | payer OTHER ==
[~2020-09-17] MED LIST changes: -LISI-898 PO; +LISI5TAB11 PO
[2020-09-17 14:28] LABS: CREATININE, URINE 88.5 MG/DL; MALB URINE SIEMENS 5.9 MG/L; MAU/CREAT RATIO 6.6 MCG/MG (0.0-30.0)
== END ==
LOC: M LAB REF 13:26
PROVIDERS: ATTEND Internal Medicine Cardiovascular Disease
DX: E78.5 Hyperlipidemia, unspecified (principal); I10 Essential (primary) hypertension

== ENCOUNTER → 2021-07-05 | Outpatient (CLI) | payer MEDICARE, OTHER ==
[2021-07-05 10:23] LABS: HEMATOCRIT 42.9 % (42.0-52.0); HEMOGLOBIN 14.6 g/dl (13.5-17.5); MEAN CORPUSCULAR HEMOGLOBIN 30.2 pg (27.0-33.0); MEAN CORPUSCULAR VOLUME 88.8 fl (80.0-96.0); PLATELET COUNT, AUTOMATED 297 10^3/uL (150-450); RED BLOOD COUNT 4.83 10^6/uL (4.30-6.10); WHITE BLOOD COUNT 9.6 10^3/uL (4.0-10.0)
[2021-07-05 10:55] LABS: ALBUMIN 3.9 GM/DL (3.2-5.2); ALT/SGPT 38 U/L (12-78); BILIRUBIN,TOTAL 0.7 MG/DL (0.2-1.0); BLOOD UREA NITROGEN 16 MG/DL (7-18); CALCIUM LEVEL 9.3 MG/DL (8.8-10.2); CARBON DIOXIDE LEVEL 31 MEQ/L (21-32); CHLORIDE LEVEL 104 MEQ/L (98-107); CREATININE FOR GFR 0.74 MG/DL (0.70-1.30); GLOMERULAR FILTRATION RATE > 60.0 (>49); GLUCOSE, FASTING 92 MG/DL (70-100); POTASSIUM SERUM 4.5 MEQ/L (3.5-5.1); SODIUM LEVEL 140 MEQ/L (136-145); TOTAL PROTEIN 7.2 GM/DL (6.4-8.2)
== END ==
LOC: M PLALAB 09:06
PROVIDERS: ATTEND Physician Assistant
DX: I10 Essential (primary) hypertension (principal)

== ENCOUNTER → 2021-11-12 | Outpatient (CLI) | payer MEDICARE, OTHER | LOC: M RAD 08:37 | PROVIDERS: ATTEND Family Medicine | DX: Z13.6 Encounter for screening for cardiovascular disorders (principal) ==

== ENCOUNTER → 2021-12-09 | Outpatient (CLI) | payer MEDICARE, OTHER | LOC: M RAD 09:12 | PROVIDERS: ATTEND Family Medicine | DX: Z12.2 Encounter for screening for malignant neoplasm of respiratory organs (principal); Z87.891 Personal history of nicotine dependence; J43.9 Emphysema, unspecified; J98.4 Other disorders of lung; J84.10 Pulmonary fibrosis, unspecified ==

== ENCOUNTER → 2021-12-25 | Outpatient (CLI) | payer MEDICARE, OTHER ==
[2021-12-25 15:52] LABS: BLOOD UREA NITROGEN 12 MG/DL (7-18); CALCIUM LEVEL 9.6 MG/DL (8.8-10.2); CARBON DIOXIDE LEVEL 32 MEQ/L (21-32); CHLORIDE LEVEL 101 MEQ/L (98-107); CREATININE FOR GFR 0.76 MG/DL (0.70-1.30); GLOMERULAR FILTRATION RATE > 60.0 (>49); GLUCOSE, FASTING 93 MG/DL (70-100); POTASSIUM SERUM 4.3 MEQ/L (3.5-5.1); SODIUM LEVEL 139 MEQ/L (136-145); URIC ACID 4.5 MG/DL (3.5-7.2)
== END ==
LOC: M PLALAB 10:52
PROVIDERS: ATTEND Student in an Organized Health Care Education/Training Program
DX: I10 Essential (primary) hypertension (principal)

== ENCOUNTER → 2021-12-25 | Outpatient (CLI) | payer MEDICARE, OTHER ==
[2021-12-25 14:03] LABS: BASO % 0.5 % (0.0-1.0); EOS # 0.2 10^3/uL (0.0-0.5); EOS % 2.6 % (0.0-3.0); HEMATOCRIT 40.2 % (42.0-52.0); HEMOGLOBIN 13.3 g/dl (13.5-17.5); LYMPH # 2.3 10^3/uL (1.5-5.0); LYMPH % 26.7 % (24.0-44.0); MEAN CORPUSCULAR HEMOGLOBIN 30.2 pg (27.0-33.0); MEAN CORPUSCULAR HGB CONC 33.1 g/dl (32.0-36.5); MEAN CORPUSCULAR VOLUME 91.4 fl (80.0-96.0); MONO % 11.1 % (2.0-8.0); NEUTROPHILS # 5.2 10^3/uL (1.5-8.5); NEUTROPHILS % 58.9 % (36.0-66.0); PLATELET COUNT, AUTOMATED 316 10^3/uL (150-450); WHITE BLOOD COUNT 8.8 10^3/uL (4.0-10.0)
[2021-12-25 15:51] LABS: ALBUMIN 3.8 GM/DL (3.2-5.2); ALKALINE PHOSPHATASE 104 U/L (45-117); ALT/SGPT 46 U/L (12-78); AST/SGOT 27 U/L (7-37); BILIRUBIN,TOTAL 0.5 MG/DL (0.2-1.0); BLOOD UREA NITROGEN 12 MG/DL (7-18); CALCIUM LEVEL 9.3 MG/DL (8.8-10.2); CARBON DIOXIDE LEVEL 33 MEQ/L (21-32); CHLORIDE LEVEL 102 MEQ/L (98-107); CREATININE FOR GFR 0.77 MG/DL (0.70-1.30); GLOMERULAR FILTRATION RATE > 60.0 (>49); GLUCOSE, FASTING 92 MG/DL (70-100); POTASSIUM SERUM 4.2 MEQ/L (3.5-5.1); SODIUM LEVEL 140 MEQ/L (136-145); TOTAL PROTEIN 7.5 GM/DL (6.4-8.2)
== END ==
LOC: M PLALAB 10:54
PROVIDERS: ATTEND Psychiatry & Neurology Neurology
DX: R56.9 Unspecified convulsions (principal)

== ENCOUNTER → 2022-03-12 | Outpatient (CLI) | payer MEDICARE, OTHER ==
[2022-03-12 13:41] LABS: BASO # 0.1 10^3/uL (0.0-0.2); BASO % 0.6 % (0.0-1.0); EOS # 0.5 10^3/uL (0.0-0.5); EOS % 4.9 % (0.0-3.0); HEMATOCRIT 40.5 % (42.0-52.0); HEMOGLOBIN 13.8 g/dl (13.5-17.5); LYMPH # 2.8 10^3/uL (1.5-5.0); LYMPH % 30.2 % (24.0-44.0); MEAN CORPUSCULAR HEMOGLOBIN 30.8 pg (27.0-33.0); MEAN CORPUSCULAR HGB CONC 34.1 g/dl (32.0-36.5); MEAN CORPUSCULAR VOLUME 90.4 fl (80.0-96.0); MONO % 10.4 % (2.0-8.0); NEUTROPHILS % 53.7 % (36.0-66.0); PLATELET COUNT, AUTOMATED 329 10^3/uL (150-450); RED BLOOD COUNT 4.48 10^6/uL (4.30-6.10); WHITE BLOOD COUNT 9.2 10^3/uL (4.0-10.0)
== END ==
LOC: M PLALAB 11:38
PROVIDERS: ATTEND Student in an Organized Health Care Education/Training Program
DX: D64.9 Anemia, unspecified (principal)

== ENCOUNTER → 2022-05-07 | Outpatient (REF) | payer MEDICARE | LOC: M SFHCPLAZ 08:44 | PROVIDERS: ATTEND Family Medicine | DX: E78.00 Pure hypercholesterolemia, unspecified (principal); I10 Essential (primary) hypertension ==

== ENCOUNTER → 2022-05-22 | Outpatient (CLI) | payer MEDICARE ==
[2022-05-22 11:06] LABS: BLOOD UREA NITROGEN 25 MG/DL (9-23); CALCIUM LEVEL 9.3 MG/DL (8.3-10.6); CARBON DIOXIDE LEVEL 32 MMOL/L (20-31); CHLORIDE LEVEL 102 MMOL/L (98-107); CHOLESTEROL LEVEL 126 MG/DL (<200); CREATININE FOR GFR 0.82 MG/DL (0.70-1.30); GLOMERULAR FILTRATION RATE > 60.0 (>49); GLUCOSE, FASTING 98 MG/DL (74-106); LDL CHOLESTEROL 72.2 MG/DL (<100); POTASSIUM SERUM 4.3 MMOL/L (3.5-5.1); SODIUM LEVEL 139 MMOL/L (136-145); TRIGLYCERIDES LEVEL 89 MG/DL (<150)
[2022-05-22 12:06] LABS: HEMOGLOBIN A1c 5.9 % (4.0-6.0)
== END ==
LOC: M PLALAB 08:17
PROVIDERS: ATTEND Student in an Organized Health Care Education/Training Program
DX: I10 Essential (primary) hypertension (principal); E78.00 Pure hypercholesterolemia, unspecified

== ENCOUNTER → 2023-03-10 | Outpatient (CLI) | payer MEDICARE | LOC: M RAD 07:05 | PROVIDERS: ATTEND Student in an Organized Health Care Education/Training Program | DX: Z12.2 Encounter for screening for malignant neoplasm of respiratory organs (principal); Z87.891 Personal history of nicotine dependence; R91.1 Solitary pulmonary nodule; J84.10 Pulmonary fibrosis, unspecified ==

== ENCOUNTER → 2023-04-22 | Outpatient (CLI) | payer MEDICARE ==
[2023-04-22 10:31] LABS: BASO # 0.1 10^3/uL (0.0-0.2); BASO % 0.6 % (0.0-1.0); EOS # 0.4 10^3/uL (0.0-0.5); EOS % 4.4 % (0.0-3.0); HEMATOCRIT 40.6 % (42.0-52.0); HEMOGLOBIN 13.8 g/dl (13.5-17.5); LYMPH # 2.4 10^3/uL (1.5-5.0); LYMPH % 29.6 % (24.0-44.0); MEAN CORPUSCULAR HEMOGLOBIN 30.6 pg (27.0-33.0); MONO # 0.8 10^3/uL (0.0-0.8); NEUTROPHILS # 4.4 10^3/uL (1.5-8.5); PLATELET COUNT, AUTOMATED 333 10^3/uL (150-450); RED BLOOD COUNT 4.51 10^6/uL (4.30-6.10)
[2023-04-22 10:57] LABS: ALBUMIN 3.8 G/DL (3.2-5.2); ALKALINE PHOSPHATASE 69 U/L (46-116); ALT/SGPT 29 U/L (7.0-40); AST/SGOT 24 U/L (<34); BILIRUBIN,TOTAL 0.8 MG/DL (0.3-1.2); BLOOD UREA NITROGEN 25 MG/DL (9-23); CALCIUM LEVEL 8.8 MG/DL (8.3-10.6); CARBON DIOXIDE LEVEL 31 MMOL/L (20-31); CHLORIDE LEVEL 104 MMOL/L (98-107); CREATININE FOR GFR 0.83 MG/DL (0.70-1.30); GLOMERULAR FILTRATION RATE > 60.0 (>49); GLUCOSE, FASTING 101 MG/DL (74-106); POTASSIUM SERUM 4.7 MMOL/L (3.5-5.1); SODIUM LEVEL 140 MMOL/L (136-145); TOTAL PROTEIN 6.8 G/DL (5.7-8.2)
== END ==
LOC: M PLALAB 08:22
PROVIDERS: ATTEND Psychiatry & Neurology Neurology
DX: R56.9 Unspecified convulsions (principal)

== ENCOUNTER → 2023-05-14 | Outpatient (CLI) | payer MEDICARE ==
[2023-05-14 19:04] LABS: HEMATOCRIT 42.9 % (42.0-52.0); HEMOGLOBIN 14.8 g/dl (13.5-17.5); MEAN CORPUSCULAR HGB CONC 34.5 g/dl (32.0-36.5); MEAN CORPUSCULAR VOLUME 89.9 fl (80.0-96.0); PLATELET COUNT, AUTOMATED 320 10^3/uL (150-450); RED BLOOD COUNT 4.77 10^6/uL (4.30-6.10); WHITE BLOOD COUNT 10.4 10^3/uL (4.0-10.0)
[2023-05-14 19:33] LABS: CHOLESTEROL RISK RATIO 4.02 (<5); HDL CHOLESTEROL 33.5 MG/DL (>40); LDL CHOLESTEROL 48.9 MG/DL (<100); NON-HDL-C 101.5 MG/DL
== END ==
LOC: M PLALAB 16:00
PROVIDERS: ATTEND Student in an Organized Health Care Education/Training Program
DX: G40.309 Generalized idiopathic epilepsy and epileptic syndromes, not intractable, without status epilepticus (principal); E78.00 Pure hypercholesterolemia, unspecified

== ENCOUNTER → 2023-06-26 | Outpatient (CLI) | payer MEDICARE ==
[2023-06-26 10:38] LABS: BASO # 0.1 10^3/uL (0.0-0.2); BASO % 0.6 % (0.0-1.0); EOS # 0.4 10^3/uL (0.0-0.5); HEMATOCRIT 43.4 % (42.0-52.0); HEMOGLOBIN 14.9 g/dl (13.5-17.5); LYMPH # 2.5 10^3/uL (1.5-5.0); LYMPH % 27.5 % (24.0-44.0); MEAN CORPUSCULAR HEMOGLOBIN 31.2 pg (27.0-33.0); MEAN CORPUSCULAR HGB CONC 34.3 g/dl (32.0-36.5); MEAN CORPUSCULAR VOLUME 90.8 fl (80.0-96.0); MONO # 0.9 10^3/uL (0.0-0.8); NEUTROPHILS # 5.1 10^3/uL (1.5-8.5); NEUTROPHILS % 57.7 % (36.0-66.0); PLATELET COUNT, AUTOMATED 352 10^3/uL (150-450); RED BLOOD COUNT 4.78 10^6/uL (4.30-6.10); WHITE BLOOD COUNT 8.9 10^3/uL (4.0-10.0)
[2023-06-26 10:41] LABS: CHOLESTEROL RISK RATIO 3.65 (<5); HDL CHOLESTEROL 34.5 MG/DL (>40); LDL CHOLESTEROL 75.7 MG/DL (<100); NON-HDL-C 91.5 MG/DL
[2023-06-26 10:48] LABS: HEMOGLOBIN A1c 5.7 % (4.0-6.0)
== END ==
LOC: M PLALAB 07:32
PROVIDERS: ATTEND Ophthalmology
DX: H35.61 Retinal hemorrhage, right eye (principal); H25.13 Age-related nuclear cataract, bilateral; H16.223 Keratoconjunctivitis sicca, not specified as Sjogren's, bilateral; Z79.899 Other long term (current) drug therapy

== ENCOUNTER → 2024-05-05 | Outpatient (CLI) | payer MEDICARE ==
[2024-05-05 10:44] LABS: CHOLESTEROL RISK RATIO 2.97 (<5); HDL CHOLESTEROL 38.7 MG/DL (>40); LDL CHOLESTEROL 61.7 MG/DL (<100); NON-HDL-C 76.3 MG/DL
[2024-05-05 11:07] LABS: HEMOGLOBIN A1c 5.6 % (4.0-6.0)
== END ==
LOC: M PLALAB 07:59
PROVIDERS: ATTEND Student in an Organized Health Care Education/Training Program
DX: Z00.00 Encounter for general adult medical examination without abnormal findings (principal); E78.00 Pure hypercholesterolemia, unspecified

== ENCOUNTER → 2024-05-05 | Outpatient (CLI) | payer MEDICARE ==
[2024-05-05 10:39] LABS: BASO # 0.1 10^3/uL (0.0-0.2); BASO % 0.7 % (0.0-1.0); EOS # 0.5 10^3/uL (0.0-0.5); EOS % 5.3 % (0.0-3.0); HEMATOCRIT 41.3 % (42.0-52.0); HEMOGLOBIN 14.3 g/dl (13.5-17.5); LYMPH # 2.1 10^3/uL (1.5-5.0); LYMPH % 24.2 % (24.0-44.0); MEAN CORPUSCULAR HEMOGLOBIN 30.6 pg (27.0-33.0); MEAN CORPUSCULAR HGB CONC 34.6 g/dl (32.0-36.5); MEAN CORPUSCULAR VOLUME 88.2 fl (80.0-96.0); NEUTROPHILS # 5.1 10^3/uL (1.5-8.5); NEUTROPHILS % 58.7 % (36.0-66.0); PLATELET COUNT, AUTOMATED 304 10^3/uL (150-450); RED BLOOD COUNT 4.68 10^6/uL (4.30-6.10); WHITE BLOOD COUNT 8.7 10^3/uL (4.0-10.0)
[2024-05-05 10:45] LABS: ALBUMIN 3.9 G/DL (3.2-5.2); ALKALINE PHOSPHATASE 66 U/L (40-129); ALT/SGPT 26 U/L (7.0-40); AST/SGOT 24 U/L (<34); BILIRUBIN,TOTAL 0.7 MG/DL (0.3-1.2); BLOOD UREA NITROGEN 32 MG/DL (9-23); CALCIUM LEVEL 9.4 MG/DL (8.3-10.6); CARBON DIOXIDE LEVEL 31 MMOL/L (20-31); CHLORIDE LEVEL 104 MMOL/L (98-107); CREATININE FOR GFR 0.97 MG/DL (0.70-1.30); GLOMERULAR FILTRATION RATE > 60.0 (>49); GLUCOSE, FASTING 94 MG/DL (74-106); POTASSIUM SERUM 4.1 MMOL/L (3.5-5.1); SODIUM LEVEL 142 MMOL/L (136-145)
== END ==
LOC: M PLALAB 07:57
PROVIDERS: ATTEND Psychiatry & Neurology Neurology
DX: Z00.00 Encounter for general adult medical examination without abnormal findings (principal); R56.9 Unspecified convulsions; E78.00 Pure hypercholesterolemia, unspecified

== ENCOUNTER → 2024-05-31 | Outpatient (CLI) | payer MEDICARE | LOC: M RAD 09:39 | PROVIDERS: ATTEND Student in an Organized Health Care Education/Training Program | DX: F17.210 Nicotine dependence, cigarettes, uncomplicated (principal) ==

== ENCOUNTER → 2024-11-16 | Outpatient (CLI) | payer MEDICARE ==
[2024-11-16 15:22] LABS: BASO # 0.1 10^3/uL (0.0-0.2); BASO % 0.6 % (0.0-1.0); EOS # 0.3 10^3/uL (0.0-0.5); EOS % 4.3 % (0.0-3.0); LYMPH # 1.9 10^3/uL (1.5-5.0); LYMPH % 24.6 % (24.0-44.0); MONO # 0.8 10^3/uL (0.0-0.8); MONO % 10.8 % (2.0-8.0); NEUTROPHILS # 4.6 10^3/uL (1.5-8.5); NEUTROPHILS % 59.3 % (36.0-66.0); PLATELET COUNT, AUTOMATED 312 10^3/uL (150-450)
[2024-11-16 15:52] LABS: CALCIUM LEVEL 9.6 MG/DL (8.3-10.6); CARBON DIOXIDE LEVEL 32 MMOL/L (20-31); CHLORIDE LEVEL 102 MMOL/L (98-107); CREATININE FOR GFR 0.86 MG/DL (0.70-1.30); GLOMERULAR FILTRATION RATE > 90.0 (>49); POTASSIUM SERUM 4.1 MMOL/L (3.5-5.1); PSA SCREENING 0.97 NG/ML (< 4.00); SODIUM LEVEL 139 MMOL/L (136-145)
== END ==
LOC: M PLALAB 09:56
PROVIDERS: ATTEND Student in an Organized Health Care Education/Training Program
DX: Z00.00 Encounter for general adult medical examination without abnormal findings (principal); G40.309 Generalized idiopathic epilepsy and epileptic syndromes, not intractable, without status epilepticus; Z12.5 Encounter for screening for malignant neoplasm of prostate
CPT/HCPCS: 36415; 80048; 80177; 85025; G0103